=== PATIENT | female | born 1990 | race Caucasian/White ===

== ENCOUNTER 2020-04-03 07:35 | Outpatient (RCR) | payer BC, SELFPAY ==
[2020-04-03 08:54] LABS: Basophils Percent Auto 0.2 % (0.2-1.2); Eosinophils Absolute Auto 0.1 K/mm3 (0-0.3); Eosinophils Percent Auto 0.6 % (0-4.4); Hematocrit 36.2 % (37.0-47.0); Hemoglobin 12.3 g/dL (12.0-15.0); Immature Granulocyte Absolute 0.13 K/mm3 (0.00-0.031); Immature Granulocyte Percent A 1.2 % (0-0.5); Lymphocytes Absolute Auto 1.88 K/mm3 (0.9-3.2); Lymphocytes Percent Auto 17.8 % (18.3-44.2); Mean Corpuscular Hemoglobin 32.7 pg (26-34); Mean Corpuscular Volume 96.3 fl (80-100); Monocytes Absolute Auto 0.6 K/mm3 (0.1-0.6); Monocytes Percent Auto 5.6 % (2.6-8.5); Neutrophils Absolute Auto 7.9 K/mm3 (1.3-6.7); Neutrophils Percent Auto 74.6 % (45.5-73.1); Platelet Count Result 284 k/mm3 (150-375); Red Blood Count 3.76 M/mm3 (4.2-5.4); Red Cell Distribution Width 13.9 % (11.5-14.5); White Blood Count 10.6 K/mm3 (4.5-10.0)
[2020-04-03 09:06] LABS: Glucose 1 Hour PP 50gm Dose 115 mg/dL
[2020-04-03 09:41] LABS: Vitamin D 25 Hydroxy 33.4 ng/mL
[2020-04-03] MEDS: RHO(D) IMMUNE GLOBULIN 300 MCG SYRINGE IM (10:35)
== END 2020-07-02 23:59 | disposition home or self-care (01) ==
LOC: ANHLAB 07:35
PROVIDERS: Visit Provider Obstetrics & Gynecology
DX: Z29.13 Encounter for prophylactic Rho(D) immune globulin (principal); O36.0920 Maternal care for other rhesus isoimmunization, second trimester, not applicable or unspecified; Z3A.25 25 weeks gestation of pregnancy
CPT/HCPCS: 36415; 82306; 82947; 85025; 85461; 90384; 96372; J2790

== ENCOUNTER 2020-04-19 12:13 | Outpatient (RCR) | payer BC, SELFPAY ==
--- NOTE | 2020-04-19 13:55 | PTOPEVAL ---
INITIAL PHYSICAL THERAPY EVALUATION and PLAN OF CARE Thank you for referring Alta Briceño to [facility].? Alta is scheduled to be seen for physical therapy? once every 2 weeks for 8 weeks. Please review, sign, date and return this plan of care LUZ. I agree with and certify that the following plan of care is medically necessary. Referring Physician Date Admitting Provider: Attending Provider: Jay Qiu MD Referring Provider: *PT Outpatient Evaluation Start: 04/19/20 12:40 Freq: Status: Active Protocol: Document 04/19/20 12:42 DALJIT (Rec: 04/19/20 13:54 DALJIT [id number]) Therapy Assessment Status Assessment Status Assessment Status Evaluation Outpatient Past Medical History Past Medical History Source of Past Medical History Patient Musculoskeletal History Hx Orthopedic Surgery Yes: L SLAP repair 2010 Evaluation Information Problem Diagnosis pelvic and perineal pain, Onset ~9 wks ago Subjective Information Due date - 07/07/20 29 wks Query Text:As Reported By Patient/ gestation Family Began to have L hip pain - beginning of 2nd trimester, getting into and out of bed, just sitting Now having rib pain - distal rib cage anteriorly - L side Will have difficulty breathing - taking deep breath. When took pelvic floor coursework - found out pelvic floor and respiratory diaphram increased tone was present. Covid - received 1st vaccine, scheduled for 2nd vaccine within next few days. Prior Level of Function Activity Level (Last 3 Months) Occupation physical therapist Hand Dominance Right Medications Home Meds (Include: OTC, RX, Vitamins, vitamins Herbals, Dose, Route,and Frequency) Query Text:Home Med Entries Will No Longer Recall From Past Visits. Home Meds Must Be Re-entered With Each Visit. Home Setting Home Type House,Multiple Levels Environmental Barriers Stairs, Greater than 4 Living Situation With Spouse Mobility Assistive Devices (Used Last 3 None Months) Comments Additional Prior Level of Function recreation - scrapbook, used Comments to go to gym Pain Assessment Timing of Pain Assessment Timing of Pain Assessment Assessment Pain Scale Pain Scale Used
--- NOTE | 2020-06-16 08:17 | PCPTNOTE ---
PHYSICAL THERAPY DISCHARGE SUMMARY Admitting Provider: Attending Provider: Jay Qiu MD Patient:Alta Briceño Date of :1990 Alta has not returned for any further treatments since 04/19/2020, therefore she will be discharged at this time. Alta?s initial visit was on 04/19/2020 12:30 and she had a total of 1 visit. Alta called to cancel her follow up visit and has never called to reschedule any further visits. The goals have been partially met. Thank you for referring Alta to [facility]. Please review, sign, date and return this discharge summary LUZ. I have been updated about Alta's current status and I agree with discharge from the above service at this time. Referring Physician Date
== END 2020-07-14 13:22 | disposition home or self-care (01) ==
LOC: ANHHIPT 12:13
PROVIDERS: Visit Provider Obstetrics & Gynecology
DX: O26.899 Other specified pregnancy related conditions, unspecified trimester (principal); R10.2 Pelvic and perineal pain; Z3A.29 29 weeks gestation of pregnancy
CPT/HCPCS: 97162